=== PATIENT | male | born 1985 | race Caucasian/White ===

== ENCOUNTER 2018-10-22 07:45 | Emergency (ER) | payer SELFPAY ==
[~2018-10-22] VITALS: Ht 175.3 cm; Wt 74.8 kg
[2018-10-22 08:44] VITALS: BP 126/74
== END 2018-10-22 08:50 | disposition home or self-care (01) ==
LOC: ER 07:45
DX: M54.2 Cervicalgia (principal); M54.6 Pain in thoracic spine; V53.5XXA Driver of pick-up truck or van injured in collision with car, pick-up truck or van in traffic accident, initial encounter; Y92.488 Other paved roadways as the place of occurrence of the external cause
CPT/HCPCS: 99282